=== PATIENT | female | born 1945 | race Caucasian/White ===

== ENCOUNTER → 2017-10-23 | Emergency (ER) | payer OTHER ==
[~2017-10-23] VITALS: Ht 160 cm; Wt 45.4 kg
== END | disposition left against medical advice (07) ==
LOC: ER 12:00
DX: Z53.20 Procedure and treatment not carried out because of patient's decision for unspecified reasons (principal)

== ENCOUNTER 2024-10-29 12:50 | Inpatient (IN) | payer OTHER ==
[~2024-10-29] VITALS: Ht 154.9 cm; Wt 68.0 kg
[2024-10-29] MEDS ORDERED: HYDROXYZINE PAM50 MG PO (13:09)
[2024-10-29] MEDS ORDERED: RESTORIL15 MG PO (13:09)
[2024-10-29] MEDS ORDERED: LANTUS SOL100 UNIT/1 SQ (13:09)
[2024-10-29] MEDS ORDERED: SPIRONOLACTONE25 MG PO (13:10)
[2024-10-29] MEDS ORDERED: FOLIC ACID1 MG PO (13:10)
[2024-10-29] MEDS ORDERED: SERTRALINE HCL50 MG PO (13:10)
[2024-10-29] MEDS ORDERED: GEMFIBROZIL600 MG PO (13:10)
[2024-10-29] MEDS ORDERED: GLIPIZIDE5 MG PO (13:10)
[2024-10-29] MEDS ORDERED: ATORVASTATIN CA20 MG PO (13:10)
[2024-10-29] MEDS ORDERED: 0.9 % SODIUM CHLORIDE 1,000 ML IV SCH ×2 (13:30→18:15)
[2024-10-29 15:39] LABS: HEMATOCRIT 29.6 % (36.0-45.00); MEAN CELL VOLUME 92.3 fL (80.00-100.00); MEAN CORPUSCULAR HEMOGLOBIN 31.1 pg (27.00-32.0); MEAN CORPUSCULAR HGB CONC 33.7 g/dl (32.0-36.0); PLATELET COUNT 314 K/uL (150-450); RED CELL DISTRIBUTION WIDTH 14.8 % (11.5-14.5)
[2024-10-29] MEDS ORDERED: MORPHINE SULFATE 4 MG/ML CARTRIDGE IV ONE (15:45)
[2024-10-29 15:57] LABS: CALCIUM 11.3 mg/dL (8.5-10.1); CREATININE SERUM 1.62 mg/dL (0.55-1.02); GFR 30.65; POTASSIUM 4.04 mEq/L (3.5-5.1)
[2024-10-29 16:03] LABS: INR 1.1; PARTIAL THROMBOPLASTIN TIME 28.5 SECONDS (22.0-34.0); PROTHROMBIN TIME 11.9 SECONDS (9.0-11.5)
[2024-10-29 16:34] LABS: URINE APPEARANCE Turbid; URINE BILIRRUBIN Negative (NEGATIVE); URINE BLOOD Trace; URINE COLOR Yellow; URINE GLUCOSE Negative (NEGATIVE); URINE KETONE Negative (NEGATIVE); URINE LEUKOCYTE Small; URINE NITRATE Positive; URINE PROTEIN 30 (NEGATIVE)
[2024-10-29 16:35] LABS: URINE EPITHELIAL CELLS 35.6 uL (0.0-38.8); URINE WBC 120.8 uL (0.0-23.2)
[2024-10-29 16:39] LABS: URINE BACTERIA > 9821.5 uL (0.0-1933); URINE CAST > 21.83 uL (0.0-1.40); URINE RBC 0.6 uL (0.0-20.8)
[2024-10-29 17:16] LABS: URINE EPITHELIAL CELLS 0-4 /HPF
[2024-10-29] MEDS ORDERED: CEFTRIAXONE SODIUM 2,000 MG in 0.9 % SODIUM CHLORIDE 100 ML IV SCH (18:07)
[2024-10-29] MEDS ORDERED: ACETAMINOPHEN 500 MG GEL..CAP PO PRN (18:15)
[2024-10-29] MEDS ORDERED: MORPHINE SULFATE 2 MG/ML CARTRIDGE IV PRN (18:15)
[2024-10-29] MEDS ORDERED: CEFTRIAXONE SODIUM 2,000 MG VIAL ONE (20:09)
[2024-10-30 05:11] VITALS: BP 164/88; O2SAT 97
[2024-10-30 08:00] VITALS: BP 120/75; O2SAT 97
[2024-10-30] MEDS ORDERED: SERTRALINE HCL 50 MG TABLET PO SCH (09:00)
[2024-10-30] MEDS ORDERED: FAMOTIDINE/PF 20 MG in 0.9 % SODIUM CHLORIDE 8 ML IV PUSH SCH (09:00)
[2024-10-30] MEDS ORDERED: ATORVASTATIN CALCIUM 20 MG TABLET PO SCH (09:00)
[2024-10-30] MEDS ORDERED: TRANEXAMIC ACID 100MG/1ML (1000MG) AMPUL IV ONE (20:53)
[2024-10-30] MEDS ORDERED: VANCOMYCIN HCL 1,000 MG VIAL ONE (20:53)
[2024-10-30] MEDS ORDERED: CEFAZOLIN SODIUM 1,000 MG VIAL ONE (20:54)
[2024-10-30] MEDS ORDERED: POVIDONE-IODINE 118 ML BOTT TOP ONE (20:54)
[2024-10-30] MEDS ORDERED: ONDANSETRON HCL 2 MG/ML VIAL IV PRN (22:15)
[2024-10-30] MEDS ORDERED: OxyCODONE HCL 5 MG TABLET (ROXICODONE) PO PRN (22:15)
[2024-10-30] MEDS ORDERED: SODIUM CHLORIDE 0.45 % 1,000 ML IV SCH (22:15)
[2024-10-30] MEDS ORDERED: MORPHINE SULFATE 4 MG/ML CARTRIDGE IV PRN (22:15)
[2024-10-31] MEDS ORDERED: ACETAMINOPHEN 500 MG GEL..CAP PO SCH
[2024-10-31] MEDS ORDERED: CEFAZOLIN SODIUM 1,000 MG VIAL IV SCH (01:00)
[2024-10-31] MEDS ORDERED: GABAPENTIN 300 MG CAPSULE PO SCH (01:00)
[2024-10-31] MEDS ORDERED: MORPHINE SULFATE 4 MG/ML VIAL IV ONE (02:30)
[2024-10-31 04:25] VITALS: BP 134/72; O2SAT 95
[2024-10-31 07:40] LABS: MEAN CELL VOLUME 92.7 fL (80.00-100.00); MEAN CORPUSCULAR HGB CONC 34.1 g/dl (32.0-36.0); PLATELET COUNT 334 K/uL (150-450); RED BLOOD COUNT 2.69 M/uL (4.00-6.00); RED CELL DISTRIBUTION WIDTH 14.8 % (11.5-14.5)
[2024-10-31 07:44] LABS: HEMOGLOBIN 8.5 g/dL (12.0-15.00); MEAN CORPUSCULAR HEMOGLOBIN 31.5 pg (27.00-32.0)
[2024-10-31 08:09] LABS: CALCIUM 10.2 mg/dL (8.5-10.1); CREATININE SERUM 1.47 mg/dL (0.55-1.02); GFR 34.29; POTASSIUM 4.56 mEq/L (3.5-5.1)
[2024-10-31] MEDS ORDERED: APIXABAN 2.5 MG TABLET PO SCH (09:00)
[2024-10-31] MEDS ORDERED: SENNOSIDES 1 TAB TABLET PO SCH (09:00)
[2024-10-31 10:14] VITALS: BP 142/71; O2SAT 98
[2024-10-31] MEDS ORDERED: DEXTROSE 50 % IN WATER 0.5 G/ML DISP.SYRIN IV PRN (15:45)
[2024-10-31] MEDS ORDERED: INSULIN LISPRO 1,000 UNIT/10 ML UNITS SUBCUTANEO PRN (15:45)
[2024-10-31] MEDS ORDERED: INSULIN GLARGINE,HUM.REC.ANLOG 1,000 UNITS/10 ML UNITS SUBCUTANEO NR (16:00)
[2024-10-31] MEDS ORDERED: SOD FERRIC GLUC COMPLX/SUCROSE 62.5 MG/5 ML AMPUL IV SCH (17:00)
[2024-10-31] MEDS ORDERED: Cyanocobalamin/Mecobalamin 1 TAB.SL SL SCH (17:00)
[2024-10-31] MEDS ORDERED: VITAMIN B COMPLEX 1 EACH PO SCH (17:00)
[2024-10-31 17:22] VITALS: BP 129/70; O2SAT 95
[2024-11-01 00:55] VITALS: BP 162/74; O2SAT 95
[2024-11-01] MEDS ORDERED: IRON FUM,PS/FOLIC ACID/VITC/B3 1 CAP CAPSULE PO SCH (09:00)
[2024-11-01 10:10] VITALS: BP 153/91; O2SAT 98
[2024-11-01 16:00] VITALS: BP 167/88; O2SAT 95
[2024-11-01] MEDS ORDERED: FAMOtidine 20 MG TABLET PO SCH (21:00)
[2024-11-02 02:00] VITALS: BP 116/64; O2SAT 96
[2024-11-02 08:00] VITALS: BP 168/90; O2SAT 96
[2024-11-02 11:56] LABS: HEMATOCRIT 32.2 % (36.0-45.00); HEMOGLOBIN 11.1 g/dL (12.0-15.00); MEAN CELL VOLUME 92.8 fL (80.00-100.00); MEAN CORPUSCULAR HEMOGLOBIN 31.9 pg (27.00-32.0); MEAN CORPUSCULAR HGB CONC 34.4 g/dl (32.0-36.0); PLATELET COUNT 291 K/uL (150-450); RED BLOOD COUNT 3.47 M/uL (4.00-6.00)
[2024-11-02 17:09] VITALS: BP 130/72; O2SAT 97
== END 2024-11-02 17:41 | disposition home or self-care (01) | DRG 481 ==
LOC: ER 12:50 → SEC-K 19:34 → SURH 19:34
PROVIDERS: Emergency Medicine; Orthopaedic Surgery; ADMIT Internal Medicine; ATTEND Internal Medicine
PROC: 0QU Lower Bones, Supplement (ICD-10-PCS; 2024-10-30)
PROC: 0QH636Z Insertion of Intramedullary Internal Fixation Device into Right Upper Femur, Percutaneous Approach (ICD-10-PCS; principal; 2024-10-30 23:30)
PROC: 30233N1 Transfusion of Nonautologous Red Blood Cells into Peripheral Vein, Percutaneous Approach (ICD-10-PCS; 2024-10-31)
DX: S72.141A Displaced intertrochanteric fracture of right femur, initial encounter for closed fracture (principal); D62 Acute posthemorrhagic anemia; N17.8 Other acute kidney failure; W01.0XXA Fall on same level from slipping, tripping and stumbling without subsequent striking against object, initial encounter; Y92.008 Other place in unspecified non-institutional (private) residence as the place of occurrence of the external cause; G30.9 Alzheimer's disease, unspecified; F02.80 Dementia in other diseases classified elsewhere, unspecified severity, without behavioral disturbance, psychotic disturbance, mood disturbance, and anxiety